=== PATIENT | female | born 1990 | race African-American/Black ===

== ENCOUNTER 2016-05-29 16:42 | Emergency (ER) | payer OTHER ==
[2016-05-29 17:14] VITALS: BP 128/81
--- NOTE | 2016-05-29 17:55 | UC ---
Throat Pain/Nasal [place] HPI - HPI Summary HPI Summary: ST, achy, minor cough starting 3 days ago. Was also sick with similar symptoms about 2 weeks ago, reports getting ill with respiratory or throat illnesses every 1-2 months, feeling very frustrated. Feels she always has a sore throat and gets tested for strep but it's never strep (though she used to get strep 3- 4x/year when she was younger). - History of Current Complaint Chief Complaint: UCGeneralIllness Stated Complaint: SORE THROAT Time Seen by Provider: 05/29/16 17:30 Hx Obtained From: Patient Hx Last Menstrual Period: 04/28/16 ?: No Onset/Duration: Gradual Onset, Lasting Days Severity: Moderate Cough: Nonproductive Associated Signs & Symptoms: Negative: Fever, Vomiting, Rash - Allergies/Home Medications Allergies/Adverse Reactions: Allergies Allergy/AdvReac Type Severity Reaction Status Date / Time No Known Allergies Allergy Verified 05/29/16 17:07 Home Medications: Home Medications Control 1 tab PO DAILY 05/29/16 [History] PMH/Surg Hx/FS Hx/Imm Hx Previously Healthy: Yes - Surgical History Surgical History: None - Family History Known Family History: Negative: Blood Disorder - Social History Occupation: Employed Full-time - at [employer] Alcohol Use: Weekly Substance Use Type: None Smoking Status (MU): Never Smoked Tobacco Review of Systems Constitutional: Fatigue Skin: Negative Eyes: Negative ENT: Sore Throat Respiratory: Cough Cardiovascular: Negative Gastrointestinal: Negative Genitourinary: Negative Motor: Negative Neurovascular: Negative Musculoskeletal: Negative Neurological: Negative Psychological: Negative All Other Systems Reviewed And Are Negative: Yes Physical Exam Triage Information Reviewed: Yes Appearance: Well-Appearing, No Pain Distress, Well-Nourished Vital Signs: Initial Vital Signs Temp 100.1 F 05/29/16 17:08 Pulse 95 05/29/16 17:08 Resp 16 05/29/16 17:08 BP 128/81 05/29/16 17:08 Pulse Ox 97 05/29/16 17:08 Vital Signs Reviewed: Yes Eye Exam: Normal Eyes: Positive: Conjunctiva Clear ENT: Positive: Hearing grossly normal, TMs normal, Tonsillar swelling, Tonsillar exudate Dental Exam: Normal Neck: Positive: Supple, Enlarged Nodes @ - tonsillar Respiratory Exam: Normal Respiratory: Positive: Chest non-tender, Lungs clear, Normal breath sounds, No respiratory distress, No accessory muscle use Cardiovascular Exam: Normal Cardiovascular: Positive: RRR, No Murmur Musculoskeletal Exam: Normal Neurological Exam: Normal Psychological Exam: Normal Skin Exam: Normal Throat Pain/Nasal Course/Dx - Differential Dx/Diagnosis Provider Diagnoses: URI, likely viral. tonsillitis Discharge - Discharge Plan Condition: Stable Disposition: HOME Patient Education Materials: Upper Respiratory Infection (ED), Tonsillitis (ED) Referrals: Anali Burrell NP [Primary Care Provider] - Froylan Callahan MD [Medical Doctor] - Additional Instructions: You do not have strep today, but your tonsils are quite swollen. Because you have been having repeated episodes of tonsillitis, you can try discussing this with an ENT to see if there is any possible treatment for this.
== END 2016-05-29 18:00 | disposition home or self-care (01) ==
LOC: UCEAST 16:42
DX: J06.9 Acute upper respiratory infection, unspecified (principal); J03.90 Acute tonsillitis, unspecified
CPT/HCPCS: 87651; 99211; G0463